=== PATIENT | male | born 1995 | race Two or more races ===

== ENCOUNTER 2021-01-13 19:28 | Emergency (ER) | payer OTHER ==
[~2021-01-13] VITALS: Ht 165.1 cm; Wt 54.4 kg
[2021-01-13 19:50] VITALS: BP 115/91
[2021-01-13] MEDS ORDERED: HYDROcodone-ACET 10/325MG TAB PO ONE (21:45)
[2021-01-13] MEDS ORDERED: IBUPROFEN 800 MG TAB PO ONE (21:45)
== END 2021-01-13 22:06 | disposition home or self-care (01) ==
LOC: ER 19:28
DX: M51.86 Other intervertebral disc disorders, lumbar region (principal); M54.2 Cervicalgia; R51.9 Headache, unspecified; V43.52XA Car driver injured in collision with other type car in traffic accident, initial encounter; Y93.89 Activity, other specified; Y92.89 Other specified places as the place of occurrence of the external cause; Y99.8 Other external cause status
CPT/HCPCS: 70450; 72125; 72128; 72131